=== PATIENT | female | born 1970 | race Caucasian/White ===

== ENCOUNTER → 2022-08-01 | Outpatient (CLI) | payer MEDICARE, MEDICAID, SELFPAY ==
--- NOTE | 2022-08-01 13:23 | CT_ITS ---
INDICATION: Eval for ILD -- High Res Scan EXAMINATION: CT CHEST WITHOUT CONTRAST - CT Chest W/O Contrast Injection TECHNIQUE: Single helical acquisition of the chest obtained with multiplanar reconstructions. No expiratory views. A radiation dose optimization technique was used for this scan. IV Contrast dosage and agent: None. COMPARISON: Chest x-ray May 14, 2022. FINDINGS: LUNGS, PLEURA AND LARGE AIRWAYS: No reticulations or consolidation. No nodules, cystic lung changes or honeycombing. Central airways show mild peribronchial thickening diffusely. Minimal right apical scarlike pleural thickening. No pleural effusion or pneumothorax. THYROID: No thyroid lesions. HEART AND PERICARDIUM: Heart size is normal. No pericardial effusion. VESSELS: Thoracic aorta is not dilated. MEDIASTINUM AND BASHIR: No mediastinal or hilar adenopathy. There is a large sliding hiatal hernia. UPPER ABDOMEN: Left renal cortical thinning and calcification suggesting remote injury and/or infection. BONES: No suspicious lytic or blastic abnormality. CT/Chest without Contrast IMPRESSION: No evidence of interstitial lung disease. Mild diffuse peribronchial thickening distal airways suspicious for bronchiolitis. No expiratory images to assess for air trapping. Electronically Signed: Luis Alberto Camarillo DO at 23:56 EDT ,
--- NOTE | 2022-08-01 13:35 | CPS ---
Patient was scheduled for complete Pulmonary Function testing. Plethysmography and Forced Spirometry were attempted many times, with continued encouragement and instruction, and patient was unable to follow directions well enough to produce any acceptable or reproducible data. Patient also attempted DLCO testing once but is unable to breath hold long enough for adequate testing. Patient was pleasant and willing to attempt the testing asked of her and tried to provide good effort. Patient was unable to follow directions well enough to complete any acceptable data worth interpreting.
--- NOTE | 2022-08-01 13:46 | CPS ---
Patient was seen for Complete Pulmonary Function testing. Patient attempted Plethysmography and Forced Spirometry testing many times, but despite good effort, patient was unable to follow directions to produce acceptable and reproducible data for these tests. DLCO testing was attempted once but patient is unable to breath hold long enough for an adequate test.
--- NOTE | 2022-08-01 14:08 | PFT_ITS ---
Pulmonary function test report Date of study: August 01, 2022 indication: Abnormal chest x-ray Referring provider Federico Gold DO Smoking history: None Prebronchodilator spirometry showed: 1. This test did not meet any technical standards of acceptability or reproducibility, due to variable patient effort. 2. Inconclusive and unreliable study. 3. The patient was not able to perform postbronchodilator study. Lung volume studies by plethysmography showed: 1. No evidence of restriction, total lung capacity was 107% predicted. Diffusing capacity by single breath carbon monoxide technique was not possible due to patient inability to hold her breath for 10 seconds. Luis Enrique Villar MD [facility] Pulmonary Medicine [facility] August 01, 2022, 1412 hrs.
== END | disposition home or self-care (01) ==
PROVIDERS: PCP Nurse Practitioner Primary Care; Referring Provider Internal Medicine Critical Care Medicine; Visit Provider Internal Medicine Critical Care Medicine
DX: R05.3 Chronic cough (principal); R93.89 Abnormal findings on diagnostic imaging of other specified body structures
CPT/HCPCS: 71250; 94010; 94726

== ENCOUNTER → 2022-08-13 | Outpatient (CLI) | payer MEDICARE, MEDICAID, SELFPAY ==
--- NOTE | 2022-08-13 13:47 | SP.MBSS_ITS ---
Modified Barium Swallow - Patient Information Study Date: 08/13/22 Study Time: 13:00 Direct Billable Minutes: 120 Total Minutes procedure & reportin Diagnosis: Autism F84.0, Chronic Cough R05.3 Referring Physician: Federico Gold Reason for Referral: Objectively assess swallow function, risk for aspiration, and determine recommendations for least restrictive diet textures and compensatory strategies to improve safety of swallow. Medical History: Patient is a 52yo F referred by collections technician, Dr. Gold for undifferentiated chronic cough. Relevant PMH re: Autism, mental disability and chronic cough. Mother and Father present for Modified Barium Swallow Study who reported increased coughing w/ food and drink. Denies hx of PNA. Patient was coughing prior to PO intake w/ [employer]. Current Diet Ordered: Regular textures / Thin liquids Dentition: WNL Mental Status: Impaired Comment: Autism dx Respiratory Status: Oxygenating on Room Air - Penetration-Aspiration Scale Penetration-Aspiration Scale: OBJECTIVE ASSESSMENT OF SWALLOW FUNCTION (QUANTITATIVE ? PER TRIAL): PENETRATION / ASPIRATION SCALE (JOINER): 1 = does not enter airway 2 = enters airway/above vocal folds/ejected 3 = enters airway/above vocal folds/not ejected 4 = enters airway/contacts vocal folds/ejected 5 = enters airway/contacts vocal folds/not ejected 6 = enters airway/below vocal folds/ejected 7 = enters airway/below vocal folds/not ejected despite effort 8 = enters airway/below vocal folds/no effort VIDEOFLOROSCOPIC SCALE SCORE (JOINER): Grade I = aspiration of material that has penetrated into the laryngeal vestibule, intact cough reflex Grade II = aspiration < 10 % of the bolus, intact cough reflex Grade III = aspiration of < 10 % of the bolus, reduced cough reflex or aspiration of > 10 % of the bolus, intact cough reflex Grade IV = aspiration of > 10 % of the bolus, reduced cough reflex - Penetration-Aspiration Scale Score Thin Liquid via teaspoon Result: 1= does not enter airway Thin Liquid via teaspoon Trial 2 Result: 1= does not enter airway Thin Liquid via sequential sips from cup Result: 1= does not enter airway [place] Thick Liquid via small single sip from cup Result: 1= does not enter airway Honey Thick Liquid via teaspoon Result: 1= does not enter airway Pudding via teaspoon Result: 1= does not enter airway Cookie Result: 1= does not enter airway Thin Liquid via sequential sips from cup Trial 2 Result: 1= does not enter airway - Oral Phase Labial Seal: No Labial Escape Tongue Control During Bolus Hold: Posterior escape of less than half of bolus Bolus Preparation/Mastication: Slow prolonged chewing/mashing with complete recollection Bolus Transport/Lingual Motion: Delayed initiation of tongue motion Oral Residue: Residue collection on oral structures - Pharyngeal Phase Initiation of Pharyngeal Swallow: Bolus head in valleculae Soft Palate Elevation: No bolus between soft palate and pharyngeal wall Laryngeal Elevation: Comp. Superior move thyroid cart w/comp. apprx arytenoid cart-epig pet Anterior Hyoid Excursion: Complete anterior movement Epiglottic Movement: Complete inversion Laryngeal Vestibule Closure at Height of Swallow: Complete; no air/contrast in laryngeal vestibule Pharyngeal Stripping Wave: Present - complete Pharyngoesophageal Segment Opening: Complete distension and complete duration; no obstruction of flow Tongue Base Retraction: Trace column of contrast between tongue base & post. pharyngeal wall Pharyngeal Residue: Trace residue within or on pharyngeal structures - Esophageal Phase Esophageal Clearance: Complete clearance - Diagnosis/Impression Diagnosis: Swallow Function WNL Impression: Patient's swallow function grossly WNL. Piecemeal deglutition of Drea Doone cookie. Mild oral residue reduced upon subsequent swallows. Impaired bolus control w/ premature spillage to the vallecula. Trace pharyngeal residue cleared with independent use of double swallows. No penetration/aspiration observed w/ all consistencies even sequential sips of thin via cup. - Recommendations Diet: Regular Textures, Thin Liquids Recommend Repeat Modified Barium Swallow: No Need for Skilled Speech Therapy Services: No Education Completed: 1. Described result of evaluation., 4. Family/caregivers understand evaluation & agree w/ goals & tx plan. - Status Active ST Patient: Active - Contact Information [facility] Speech Therapy:: Marjorie Goss M.A. [facility] Speech-Language Pathologist [facility] [address] [place] [address] [email or web address] [phone] 08/13/22 14:25
== END | disposition home or self-care (01) ==
LOC: RAD 13:02
PROVIDERS: PCP Nurse Practitioner Primary Care; Referring Provider Internal Medicine Critical Care Medicine; Visit Provider Internal Medicine Critical Care Medicine
DX: R05.3 Chronic cough (principal)
CPT/HCPCS: 74230; 92611